=== PATIENT | female | born 1960 | race Asian ===

== ENCOUNTER 2021-03-15 08:12 | Day surgery (SDC) | payer OTHER ==
[~2021-03-15] VITALS: Ht 166 cm; Wt 60.0 kg
[2021-03-15] MEDS ORDERED: LIDOCAINE 2% 100 MG/5 ML UJET TP ONE (09:39)
[2021-03-15] MEDS ORDERED: fentaNYL citrate 0.05 MG/ML VIAL ONE (09:39)
[2021-03-15] MEDS ORDERED: MIDAZOLAM 5 MG/5 ML VIAL ONE (09:39)
[2021-03-15] MEDS ORDERED: MIDAZOLAM 2 MG/2 ML VIAL IVP ONE (12:45)
[2021-03-15] MEDS ORDERED: fentaNYL citrate 0.05 MG/ML VIAL IVP ONE (12:45)
== END 2021-03-15 11:50 | disposition home or self-care (01) ==
LOC: MDS 08:12 → MMU 08:13 → MDS 11:50
PROVIDERS: ATTEND Internal Medicine Gastroenterology
DX: Z12.11 Encounter for screening for malignant neoplasm of colon (principal); K64.4 Residual hemorrhoidal skin tags
CPT/HCPCS: 45378; J2250; J3010